=== PATIENT | female | born 1935 | race Caucasian/White ===

== ENCOUNTER 2020-10-12 07:31 | Emergency (ER) | payer MEDICARE ==
[2020-10-12] MEDS ORDERED: Ondansetron PF 4 MG/2 ML Vial ONE (07:58)
[2020-10-12 08:03] LABS: #Basophils 0.1 10x3/uL (0.0-0.2); #Eosinphils 0.1 10x3/uL (0.0-0.5); #Neutrophils 6.7 10x3/uL (1.5-8.4); %Basophils 0.5 % (0.0-2.0); %Eosinophils 0.7 % (0.0-6.0); %Lymphocytes 15.6 % (18.0-47.0); %Monocytes 10.8 % (0.0-10.0); Mean Corpuscular HGB CONC 31.8 g/dL (32.0-36.0); Mean Corpuscular Hemoglobin 31.8 pg (27.0-33.0); Mean Platelet Volume 9.6 fl (7.4-10.4); Platelet Count 329 10x3/uL (150-450); RBC Distribution Width 14.8 % (11.5-14.5); Red Blood Cell (RBC) Count 2.83 10x6/uL (3.90-5.03); White Blood Cell (WBC) Count 9.4 10x3/uL (3.5-10.5)
[2020-10-12 08:36] LABS: ALT (SGPT) 28 U/L (8-55); AST (SGOT) 20 U/L (5-34); Albumin 3.7 g/dL (3.4-4.8); Alkaline Phosphatase 55 U/L (40-110); Anion Gap 18 mmol/L (10-20); BUN (Urea Nitrogen) 24 mg/dL (9.8-20.1); Bilirubin, Total 0.2 mg/dL (0.2-1.2); CK (CPK) 74 U/L (29-168); Calc. Creatinine Clearance 0 mL/min (70-130); Calcium 9.1 mg/dL (7.8-10.44); Carbon Dioxide 22 mmol/L (23-31); Chloride 105 mmol/L (98-107); Globulin 2.7 g/dL (2.4-3.5); Glucose 89 mg/dL (83-110); Lipase 26 U/L (8-78); Potassium 5.1 mmol/L (3.5-5.1); Protein, Total 6.4 g/dL (5.8-8.1); Sodium 140 mmol/L (136-145)
[2020-10-12 09:18] LABS: Bilirubin Neg (Negative); Blood, Urine Negative (Negative); Clarity Slightly Cloudy (Clear); Glucose, Urine (Dipstick) Normal (Negative); Ketone, Urine Negative (Negative); Leukocyte 500 (Negative); Nitrite Negative (Negative); Protein, Urine (Dipstick) Negative (Neg-Trace); Specific Gravity, Urine 1.005 (1.002-1.036); Urobilinogen Normal mg/dL (Less than 2)
[2020-10-12 09:32] LABS: RBC/HPF 0-3 HPF (0-3)
[2020-10-12 09:33] LABS: Bacteria/HPF Rare-Few HPF (None Seen)
== END 2020-10-12 12:55 | disposition home or self-care (01) ==
LOC: CSHERS 07:31
DX: K59.00 Constipation, unspecified (principal); E03.9 Hypothyroidism, unspecified; K21.9 Gastro-esophageal reflux disease without esophagitis; E78.5 Hyperlipidemia, unspecified; E78.00 Pure hypercholesterolemia, unspecified; E11.9 Type 2 diabetes mellitus without complications; I10 Essential (primary) hypertension; Z79.82 Long term (current) use of aspirin; Z79.4 Long term (current) use of insulin; Z79.899 Other long term (current) drug therapy
CPT/HCPCS: 71045; 74177; 80053; 81003; 81015; 82550; 83605; 83690; 84484; 85025; 93005; 96374; J2405

== ENCOUNTER 2020-10-30 17:54 | Outpatient (CLI) | payer MEDICARE ==
[2020-10-31 04:50] LABS: SARS-CoV-2 PCR by NAA Not Detected (NotDetected)
== END 2020-10-30 17:55 | disposition home or self-care (01) ==
LOC: CSHLAB 17:54
PROVIDERS: ATTEND Internal Medicine Gastroenterology
DX: Z20.822 Contact with and (suspected) exposure to COVID-19 (principal); R19.4 Change in bowel habit; K63.5 Polyp of colon
CPT/HCPCS: 87635; U0003; U0005

== ENCOUNTER 2020-11-01 11:47 | Day surgery (SDC) | payer MEDICARE ==
[2020-10-31 09:58] VITALS: BMI 21.9
[2020-11-01] MEDS ORDERED: Lidocaine 1% MPF 2 ML VIAL ONE (12:09)
[2020-11-01] MEDS ORDERED: Midazolam HCl 2 mg/2 ml Vial ONE (12:45)
[2020-11-01] MEDS ORDERED: PROPOFOL 20 ML ONE (12:45)
== END 2020-11-01 15:10 | disposition home or self-care (01) ==
LOC: CSHSDC 11:47
PROVIDERS: ATTEND Internal Medicine Gastroenterology
PROC: 0DJD8ZZ Inspection of Lower Intestinal Tract, Via Natural or Artificial Opening Endoscopic (ICD-10-PCS; principal; 2020-11-01)
DX: K59.00 Constipation, unspecified (principal); Q43.8 Other specified congenital malformations of intestine; Z86.010 Personal history of colon polyps; K63.5 Polyp of colon
CPT/HCPCS: J2250; J2704